=== PATIENT | female | born 2000 | race Caucasian/White ===

== ENCOUNTER 2022-03-06 19:34 | Outpatient (REF) | payer MEDICAID, SELFPAY ==
[2022-03-10 09:51] LABS: Hepatitis C Ab w Rflx HCV PCR Negative (Negative)
[2022-03-10 10:03] LABS: HIV-1/2 Ag & Ab Screen Negative (Negative)
[2022-03-10 14:45] LABS: Chlamydia Result Negative (Negative); GC Result Negative (Negative)
== END 2022-03-06 19:35 | disposition home or self-care (01) ==
LOC: NCHCN 19:34
PROVIDERS: Visit Provider Nurse Practitioner Family
DX: Z11.3 Encounter for screening for infections with a predominantly sexual mode of transmission (principal); Z11.4 Encounter for screening for human immunodeficiency virus [HIV]; Z11.59 Encounter for screening for other viral diseases
CPT/HCPCS: 86803; 87389; 87491; 87591

== ENCOUNTER → 2022-05-07 01:27 | Outpatient (CLI) | payer MEDICAID, SELFPAY | PROVIDERS: Visit Provider Nurse Practitioner Family ==

== ENCOUNTER 2024-02-23 20:34 | Emergency (ER) | payer MEDICAID, SELFPAY ==
[2024-02-23 20:38] VITALS: BP 141/91; PULSE 74; RESP 14; O2SAT 99
--- NOTE | 2024-02-23 20:45 | DI.CT_ITS ---
Exam(s) CT BRAIN NECK CTA EXAM: CT BRAIN NECK CTA CLINICAL HISTORY: blurred vision headache. TECHNIQUE: Imaging Protocol: Axial CT angiography was performed with multi-slice acquisition and mu lti-planar and/or 3D reconstructions. CONTRAST MATERIAL: Intravenous: Omnipaque 350 Contrast volume:structured data in ml COMPARISON: No exams were available for comparison FINDINGS: CTA Neck W: Aortic arch anatomy: The aortic arch anatomy is conventional and there is no significant stenosis at the origin of the great vessels off of the aortic arch. No intimal flap evident. Anterior circulation: Both common carotid arteries ascend with normal luminal diameters. At the level the carotid bulbs and proximal internal carotid arteries there is no significant plaque and no hemodynamically significant stenosis evident. Posterior circulation: Both vertebral arteries originate in conventional fashion off of the subclavian arteries and there is no obvious stenosis at the origin of the vertebral arteries. Both vertebral arteries exhibit normal luminal diameters within the foramen transversarium. No intra luminal thrombus nor dissection. Both vertebral arteries contribute to the formation of the basilar artery at the skull base. CTA Brain W: Anterior circulation: Both internal carotid arteries are patent in the skull base-carotid canals as well as within the cave rnous sinuses. The supraclinoid aspects of the ICAs are patent. Both A1 segments are patent as are the anterior cer ebral arteries and there is no evidence of aneurysm at the level of the anterior communicating artery . Both middle cerebral arteries are patent with no evidence of significant stenosis nor intraluminal th rombus. There also no aneurysms of these vessels. Posterior circulation: The basilar artery ascends in the midline. Distally it gives off patent bilateral superior cerebella r arteries. Above this level the basilar artery terminates as patent bilateral posterior cerebral arteries. There is no evidence of aneurysm at the tip of the basilar artery nor elsewhere in the febyly-ka-Lezd is. CT BRAIN: There is no evidence of intracranial hemorrhage, mass effect, or shift of midline structures. There are no extra-axial fluid collections. Ventricles are not enlarged or shifted. There are no ring enh ancing lesions in the brain and no abnormal meningeal enhancement. IMPRESSION: 1. Patent carotid arteries in the neck. No hemodynamically significant stenosis. 2. Patent vertebral arteries. 3. Patent intracranial arteries. No significant stenosis. No aneurysms. 4. No acute intracranial findings. If clinically indicated follow-up MRI can be performed RADIATION DOSE DELIVERED: Total DLP DATA REPOSITORY: All CT scans at this facility are submitted to the National Radiology Data Registry (NRDR) Dose Index Registry (DIR) with the [employer] (ACR). RADIATION OPTIMIZATION: All CT scans at this facility use at least one of these dose optimization te chniques: automated exposure control; mA and/or kV adjustment per patient size (includes targeted exa ms where dose is matched to clinical indication); or iterative reconstruction.
--- NOTE | 2024-02-23 20:51 | ED.GENADUL_ITS ---
Discharge Plan Disposition Patient Disposition: Home Condition: Improving Discharge Details Chief Complaint: Headache Clinical Impression: Near syncope Primary Care Provider: None,None ED Provider: Herman Valle Home Meds and New Rx's Prescriptions: No Action No Known Home Meds Discharge Instructions Instructions: Near Syncope (ED) Additional Instructions: Please follow-up with your primary care physician HPI General Date/Time Provider Initiated Documentation: 02/23/24 20:37 . HPI Narrative: 23-year-old female history of possible hypothyroidism not taking any thyroid supplementation, presents with lightheadedness presyncopal sensation headache and blurry vision now self resolved no chest pain or shortness of breath mild nausea without vomiting. Has had multiple of these episodes in the past every couple of months Related Data Home Medications Medication Instructions Recorded Confirmed Unknown [No Known Home Meds] 01/05/18 02/23/24 Allergies Allergy/AdvReac Type Severity Reaction Status Date / Time No Known Allergies Allergy Unverified 02/23/24 22:33 General Stated Complaint: Headache JENNY: 3 Review of Systems Narrative: Review of Systems Constitutional: negative Eyes: negative ENT: negative Cardiovascular: Presyncope Respiratory: negative Gastrointestinal: Nausea : negative Musculoskeletal: negative Skin: negative Neurologic: Headache blurry vision Psych: negative Exam Narrative Exam Narrative: Physical Examination General: alert, awake, cooperative, resting comfortably, no acute distress HEENT: normocephalic, atraumatic; PERRL, EOM intact, conjunctiva normal; no nasal discharge; moist mucous membranes, oral and pharyngeal mucosa normal, tolerating secretions Neck: supple, trachea midline; full ROM Chest: normal to inspection Respiratory: normal respiratory effort, speaking in full sentences, clear to auscultation, no wheezing, rales or rhonchi Cardiac: regular rate, regular rhythm, S1S2 intact, no murmurs rubs or gallops GI: abdomen soft, non-tender, non-distended; no palpable mass or hepatosplenomegaly Skin: no lesions, rashes or trauma appreciated Neuro: AAOx3, normal speech, moving all extremities; cranial nerves II through XII intact out of 5 strength upper and lower extremities, no ataxia Psych: Appropriate mood and affect Course Vital Signs Vital signs: Vital Signs Pulse 74 02/23/24 20:38 Respiratory Rate 14 02/23/24 20:38 Blood Pressure 141/91 H 04/09/24 20:38 Pulse Oximetry 99 04/09/24 20:38 Temperature Source Tympanic 02/23/24 20:38 Pulse 74 02/23/24 20:38 Respiratory Rate 14 02/23/24 20:38 Blood Pressure 141/91 H 02/23/24 20:38 Blood Pressure Position Supine 02/23/24 20:38 Pulse Oximetry 99 02/23/24 20:38 Oxygen Delivery Method Room Air 02/23/24 20:38 Oxygen Flow Rate 0 02/23/24 20:38 Pain Level 1 02/23/24 20:38 Medical Decision Making 23-year-old female history of hypothyroidism, not taking thyroid supplementation presents with lightheadedness presyncopal sensation headache nausea and blurred vision now self resolved brief in nature not exertional in nature, intermittent headaches for the last several years every couple of months no definitive diagnosis of migraine, patient currently on her menstrual period. Alert oriented nontoxic nonfocal. Will obtain EKG fingerstick glucose, basic labs, thyroid level, fluids antiemetics will also obtain brain imaging given recurrent headaches and visual changes today high clinical suspicion for migraine syndrome versus metabolic derangement versus dehydration versus hypothyroidism versus less likely viral illness versus unlikely intracranial mass or vascular malformation low suspicion for meningitis or encephalitis given history and physical. 23: 45 patient resting comfortably feeling much better after fluids and rest. Labs and imaging unremarkable Quality:SDOH Health Related Social Needs: No Data to Display PFSH All Active Problems (Updated 02/23/24 @ 23:35 by Herman Valle MD) Near syncope (Acute) Unspecified sprain of left ring finger, initial encounter (Acute 11/03/16) Social History Smoking/Tobacco Use Status: Current every day Tobacco Type: e-cigarettes Smoking risk assessment performed?: Yes Alcohol Intake: never Drug use: Occasionally Substance use type: marijuana Do you feel safe at home: Yes Do you feel safe in your relationship?: Yes
[2024-02-23] MEDS: Normal Saline 1,000 ML 1000 ML IV (21:03)
[2024-02-23 21:07] LABS: Abs Immature Grans 0.02 10^3/uL (0.0-0.06); Absolute Basophil Count 0.05 10^3/uL (0.0-0.2); Absolute Eosinophil Count 0.09 10^3/uL (0.0-0.7); Absolute Lymphocyte Count 3.76 10^3/uL (1.2-3.4); Absolute Monocyte Count 0.47 10^3/uL (0.1-0.8); Basophils % 0.6; HCT 44.1 % (36.0-46.0); HGB 14.4 g/dL (11.2-15.7); Immature Grans % 0.2; Lymphocytes % 42.3; MCH 27.9 pg (27.0-33.0); MCHC 32.7 % (32.0-36.0); MCV 86 fL (80-95); MPV 9.9 fL (8.0-11.0); Monocytes % 5.3; Neutrophils % 50.6; Platelet Count 289 10^3/uL (130-400); RBC 5.16 10^6/uL (3.93-5.22); RDW 13.2 % (11.7-14.6); RDW-SD 41.5 fL; WBC 8.89 10^3/uL (4.4-10.8)
[2024-02-23] MEDS: ACETAMINOPHEN 1,000 MG/100 ML BTL 400 MG IVPB (21:23)
[2024-02-23] MEDS: Ondansetron 4 MG/2 ML VIAL IVP (21:24)
[2024-02-23 21:30] LABS: ALT 21 U/L (14-59); AST 16 U/L (15-37); Albumin 3.7 g/dL (3.4-5.0); Alkaline Phosphatase 90 U/L (46-116); Anion Gap 9.4 mmol/L (3-11); BUN 16 mg/dL (7-18); Bilirubin, Total 0.4 mg/dL (0.2-1.0); CO2 24.6 mmol/L (21.0-32.0); Chloride 105 mmol/L (98-107); Estimated GFR 81.69 (mL/min/1.73m2); Glucose 94 mg/dL (74-106); Potassium 3.6 mmol/L (3.5-5.1); Sodium 139 mmol/L (136-145); TSH (W/Ref FT4) 4.56 uIU/mL (0.36-3.74); Total Protein 7.9 g/dL (6.4-8.2)
[2024-02-23 21:48] LABS: FREE T4 0.95 ng/dL (0.76-1.46)
[2024-02-23 21:53] LABS: Bilirubin Negative (Negative); Blood Negative (Negative); Clarity Clear (Clear); Glucose Negative (Negative); Ketones Negative (Negative); Leukocyte Esterase Negative (Negative); Nitrite Negative (Negative); Specific Gravity 1.015 (1.005-1.025); Urobilinogen 0.2 mg/dL (Up to 0.2); pH 5.5 (5-8)
[2024-02-23] MEDS: Omnipaque 350 MG/ML 100 ML BTL IJ (22:25)
[2024-02-23] MEDS: Normal Saline - Diluent 50 ML VIAL IJ (22:26)
--- NOTE | 2024-02-23 23:21 | DI.VRAD_ITS ---
PROCEDURE INFORMATION: Exam: CTA Head Without And With Contrast, Arteriography Exam date and time: 02/23/2024 10:18 PM Age: 23 years old Clinical indication: Other: Blurred vision, headache TECHNIQUE: Imaging protocol: Computed tomographic angiography of the head without and with contrast. Exam focused on the arteries. 3D rendering (Not supervised by radiologist): MIP and/or 3D reconstructed images were created by the technologist. Radiation optimization: All CT scans at this facility use at least one of these dose optimization techniques: automated exposure control; mA and/or kV adjustment per patient size (includes targeted exams where dose is matched to clinical indication); or iterative reconstruction. Contrast material: OMNIPAQUE 350; Contrast volume: 85 ml; Contrast route: INTRAVENOUS (IV); COMPARISON: No relevant prior studies available. FINDINGS: ANTERIOR CIRCULATION: Right internal carotid artery: Intracranial segment is patent with no significant stenosis or occlusion. No aneurysm. Right middle cerebral artery: No occlusion or significant stenosis. No aneurysm. Right anterior cerebral artery: No occlusion or significant stenosis. No aneurysm. Left internal carotid artery: Intracranial segment is patent with no significant stenosis. No aneurysm. Left middle cerebral artery: No occlusion or significant stenosis. No aneurysm. Left anterior cerebral artery: No occlusion or significant stenosis. No aneurysm. POSTERIOR CIRCULATION: Right vertebral artery: No occlusion or significant stenosis. No aneurysm. Left vertebral artery: No occlusion or significant stenosis. No aneurysm. Basilar artery: No occlusion or significant stenosis. No aneurysm. Right posterior cerebral artery: No occlusion or significant stenosis. No aneurysm. Left posterior cerebral artery: No occlusion or significant stenosis. No aneurysm. HEAD: Brain: Normal volume for age. No evidence of acute large vascular territory infarct. No acute intracranial hemorrhage. No edema. No midline shift or herniation. Cerebral ventricles: No ventriculomegaly. Bones/joints: No acute osseous finding. Paranasal sinuses: Predominantly clear. Mastoid air cells: No mastoid effusion. Soft tissues: Unremarkable. IMPRESSION: 1. No acute intracranial finding on unenhanced CT. 2. No large vessel occlusion. PROCEDURE INFORMATION: Exam: CTA Neck With Contrast Exam date and time: 02/23/2024 10:18 PM Age: 23 years old Clinical indication: Other: Blurred vision, headache TECHNIQUE: Imaging protocol: Computed tomographic angiography of the neck with contrast. Exam focused on the cervical segments of the vasculature. 3D rendering (Not supervised by radiologist): MIP and/or 3D reconstructed images were created by the technologist. Radiation optimization: All CT scans at this facility use at least one of these dose optimization techniques: automated exposure control; mA and/or kV adjustment per patient size (includes targeted exams where dose is matched to clinical indication); or iterative reconstruction. Contrast material: OMNIPAQUE 350; Contrast volume: 85 ml; Contrast route: INTRAVENOUS (IV); COMPARISON: No relevant prior studies available. FINDINGS: Right common carotid artery: No stenosis. No dissection or occlusion. Right internal carotid artery: No stenosis of the extracranial segment. No dissection or occlusion. Right external carotid artery: No occlusion or stenosis of the origin. Left common carotid artery: No stenosis. No dissection or occlusion. Left internal carotid artery: No stenosis of the extracranial segment. No dissection or occlusion. Left external carotid artery: No occlusion or stenosis of the origin. Right vertebral artery: No stenosis. No dissection or occlusion. Left vertebral artery: No stenosis. No dissection or occlusion. Thyroid: No mass. Lymph nodes: Multiple prominent but nonenlarged bilateral cervical lymph nodes. Soft tissues: Paraspinal soft tissues unremarkable as visualized. Bones/joints: No acute fracture. There is straightening of normal cervical lordosis which may be secondary to patient positioning versus muscle spasm. IMPRESSION: No stenosis or occlusion of the major extracranial carotid or vertebral arteries. REFERENCES: NASCET CRITERIA. The degree of stenosis in the cervical segment of the internal carotid artery is based on NASCET criteria. Normal is no stenosis. Mild is less than 50% stenosis. Moderate is 50-69% stenosis. Severe is 70% to 99% stenosis. Total occlusion is no detectable patent lumen. Dictated and Authenticated by: Damaso Babin MD. Ordering:JORDYN Sutton MD
[2024-02-23 23:38] VITALS: BP 112/72; PULSE 65; RESP 16; TEMP 36.8; O2SAT 100
== END 2024-02-23 23:28 | disposition home or self-care (01) ==
PROVIDERS: Emergency Provider Emergency Medicine; PCP Nurse Practitioner Family
DX: R51.9 Headache, unspecified (principal); R42 Dizziness and giddiness; H53.8 Other visual disturbances; R55 Syncope and collapse
CPT/HCPCS: 70496; 70498; 80053; 81025; 82962; 96365; 96375; 99285; 81003; 84439; 84443; 85025; 99284; J0131; J2405; J3490

== ENCOUNTER 2024-06-20 08:28 | Emergency (ER) | payer MEDICAID, SELFPAY ==
[2024-06-20] VITALS (21 sets, daily range): BP systolic 109–141; BP diastolic 67–99; PULSE 80–110; RESP 18; TEMP 36.8; O2SAT 97–100
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
[2024-06-20 09:42] LABS: Abs Immature Grans 0.03 10^3/uL (0.0-0.06); Absolute Basophil Count 0.03 10^3/uL (0.0-0.2); Absolute Eosinophil Count 0.08 10^3/uL (0.0-0.7); Absolute Lymphocyte Count 2.16 10^3/uL (1.2-3.4); Absolute Monocyte Count 0.85 10^3/uL (0.1-0.8); Absolute Neutrophil Count 4.79 10^3/uL (1.2-6.7); Basophils % 0.4 %; HCT 40.9 % (36.0-46.0); HGB 13.9 g/dL (11.2-15.7); Immature Grans % 0.4 %; Lymphocytes % 27.2 %; MCH 28.8 pg (27.0-33.0); MCV 85 fL (80-95); MPV 10.8 fL (8.0-11.0); Monocytes % 10.7 %; Neutrophils % 60.3 %; Platelet Count 246 10^3/uL (130-400); RBC 4.82 10^6/uL (3.93-5.22); RDW-SD 43.3 fL; WBC 7.94 10^3/uL (4.4-10.8)
[2024-06-20 09:45] LABS: ALT 24 U/L (14-59); AST 12 U/L (15-37); Albumin 3.7 g/dL (3.4-5.0); Alkaline Phosphatase 67 U/L (46-116); Anion Gap 11.5 mmol/L (3-11); BUN 9 mg/dL (7-18); Bilirubin, Total 0.37 mg/dL (0.2-1.0); CO2 23.5 mmol/L (21.0-32.0); Calcium 9.4 mg/dL (8.5-10.1); Chloride 105 mmol/L (98-107); Estimated GFR 81.69 (mL/min/1.73m2); Glucose 100 mg/dL (74-106); HCG Qual (Serum) Negative; Magnesium 1.8 mg/dL (1.8-2.4); Sodium 140 mmol/L (136-145); Total Protein 7.3 g/dL (6.4-8.2)
[2024-06-20 09:49] LABS: Potassium 2.6 mmol/L (3.5-5.1)
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
[2024-06-20] MEDS: Potassium Chloride 20 MEQ TABCR 40 MEQ PO (11:21)
--- NOTE | 2024-06-20 11:48 | NUR.NOTE ---
Referral given to Care Managers to assist Pt in obtaining a new primary care provider to establish care and for follow up to [facility]-Post concussion some time within next week
--- NOTE | 2024-06-21 14:44 | NUR.NOTE ---
Nursing Note: Got into chart to determine what time the patient arrived in the ER yesterday so documentation could be finished.
== END 2024-06-20 11:40 | disposition home or self-care (01) ==
PROVIDERS: Emergency Provider Emergency Medicine; PCP Nurse Practitioner Family
DX: S00.81XA Abrasion of other part of head, initial encounter (principal); S06.0X0A Concussion without loss of consciousness, initial encounter; E87.6 Hypokalemia; E07.9 Disorder of thyroid, unspecified; F17.290 Nicotine dependence, other tobacco product, uncomplicated; V43.62XA Car passenger injured in collision with other type car in traffic accident, initial encounter
CPT/HCPCS: 80053; 99284; 70450; 72125; 83735; 84703; 85025